=== PATIENT | female | born 1945 | race Caucasian/White ===

== ENCOUNTER → 2020-10-19 00:33 | Outpatient (CLI) | payer MEDICARE, SELFPAY ==
[2020-10-19 18:42] LABS: SARS-CoV-2 RNA PCR Negative
== END ==
PROVIDERS: Visit Provider Internal Medicine Gastroenterology
DX: Z01.812 Encounter for preprocedural laboratory examination (principal); Z20.822 Contact with and (suspected) exposure to COVID-19
CPT/HCPCS: C9803; U0003; U0005

== ENCOUNTER 2020-10-22 00:46 | Day surgery (SDC) | payer MEDICARE, SELFPAY ==
[2020-10-12 11:12] VITALS: BMI 20.8
[2020-10-22] MEDS: LACTATED RINGERS 1,000 ML 150 ML IV CONT (07:52)
[2020-10-22 07:55] VITALS: BP 148/89; PULSE 91; RESP 20; TEMP 36.1; O2SAT 99; BMI 22.1
--- NOTE | 2020-10-22 07:57 | WPDANESEPPF ---
Anes - Initial Pre Proc Eval Procedure: Operation Date: 10/22/20 09:00 Proposed Procedures p Screening Colonoscopy - Scar Taylor MD Date/Time: 10/22/20 07:57 Surgeon: Scar Taylor MD Pre Op Diagnosis: hx of colon polyps Patient Data Age: 75 Gender: F Height: 5 ft 4 in Weight: 55 kg Allergies Allergy/AdvReac Type Severity Reaction Status Date / Time No Known Allergies Allergy Unverified 10/12/20 11:12 Home Medications Medication Instructions Recorded Confirmed Type sod picosulf 10 mg-magnes 3.5 160 ml PO BID #160 ml 09/28/20 Rx gram-citric 12 gram/160 mL oral solution ascorbic acid (vitamin C) 500 mg PO DAILY 10/12/20 10/12/20 History biotin 1,000 mcg PO DAILY 10/12/20 10/12/20 History calcium carbonate-vitamin D3 2 cap PO DAILY 10/12/20 10/12/20 History [Calcium 600 + D(3)] famotidine 20 mg PO BID 10/12/20 10/12/20 History kykemkgnhwqk-xpi-endg-FA-vit K 1 tablet PO DAILY 10/12/20 10/12/20 History [Adults Multivitamin] ropinirole 0.25 mg PO HS 10/12/20 10/12/20 History vit C-E-zinc zh-untk-pez-zeax 1 cap PO DAILY 10/12/20 10/12/20 History [ICaps AREDS2] Patient hx anesthesia problems: none Family hx anesthesia problems: none [facility] Past Medical History Medical History (Updated 10/22/20 @ 07:57 by Bhargav Hines MD) Chronic ITP (idiopathic thrombocytopenic purpura) GERD (gastroesophageal reflux disease) Restless leg syndrome Social History Social History Smoking status: Never smoker Drinks per week: 2 Alcohol use details: WINE Substance use: never Substance use type: does not use Living arrangements: alone Spiritual care concerns: No Anes - Eval Final PreProcedure Day of Procedure 10/22/20 07:57 Patient weight: normal Heart: regular rate and rhythm Lungs: clear to auscultation Airway: Mallampati scale class II Neurological: alert and oriented Last oral intake: >/= 8 hours ASA classification: III Emergent: no Anesthetic plan: proceed Anesthesia type and monitoring: general GIVS and standard monitoring Informed Consent: The patient's anesthetic plan and its attendant risks and benefits were discussed with the patient/family/POA. Questions were solicited and answers provided to the satisfaction of the patient/family/POA.
--- NOTE | 2020-10-22 08:04 | WPDGICN ---
Assessment and Plan Assessment and plan (1) History of colon polyps: Code(s): Z86.010 - Personal history of colonic polyps Status: Acute Assessment and Plan: Patient has a history of adenomatous colon polyps in the past. Most recently 2014. Plan to proceed with colonoscopy at this time and suggest colonoscopy at 5 year intervals. GI Consult Note Consult date/time: 10/22/20 08:04 HPI: Estelita Avery is a 75 year old female Presents for screening colonoscopy. She has a history of colon polyps in the past. Most recently 2014. At that time adenomatous polyps were identified. Patient states that her current weight appetite bowel movements are normal. She denies any family history of cancer nor polyps. She states her bowel habits are normal with no bleeding. Review of Systems Review of Systems: All systems reviewed & are unremarkable except as noted in HPI and below PMFSH Past Medical History Medical History (Updated 10/22/20 @ 08:05 by Scar Taylor MD) Chronic ITP (idiopathic thrombocytopenic purpura) GERD (gastroesophageal reflux disease) Restless leg syndrome Social History Social History Smoking status: Never smoker Drinks per week: 2 Alcohol use details: WINE Substance use: never Substance use type: does not use Living arrangements: alone Spiritual care concerns: No Meds Home Medications and Allergies Home Medications Medication Instructions Recorded Confirmed Type sod picosulf 10 mg-magnes 3.5 160 ml PO BID #160 ml 09/28/20 Rx gram-citric 12 gram/160 mL oral solution ascorbic acid (vitamin C) 500 mg PO DAILY 10/12/20 10/12/20 History biotin 1,000 mcg PO DAILY 10/12/20 10/12/20 History calcium carbonate-vitamin D3 2 cap PO DAILY 10/12/20 10/12/20 History [Calcium 600 + D(3)] famotidine 20 mg PO BID 10/12/20 10/12/20 History ubctaxlasxxk-gva-dodx-FA-vit K 1 tablet PO DAILY 10/12/20 10/12/20 History [Adults Multivitamin] ropinirole 0.25 mg PO HS 10/12/20 10/12/20 History vit C-E-zinc wz-pxiu-cjt-zeax 1 cap PO DAILY 10/12/20 10/12/20 History [ICaps AREDS2] Allergies Allergy/AdvReac Type Severity Reaction Status Date / Time No Known Allergies Allergy Unverified 10/12/20 11:12 Vital Signs Vital Signs - 24 hr 10/22/20 07:55 Temperature 97 F L Pulse Rate 91 Respiratory Rate 20 Blood Pressure 148/89 H Pulse Oximetry 99 Exam Narrative: Exam Narrative: Physical exam reveals patient be alert. Vital signs stable. HEENT exam unremarkable. Lungs are clear to auscultation and percussion. Heart is without murmur or extra sounds. Abdominal exam bowel sounds are present soft nontender with no organomegaly. Digital external rectal exam normal.
[2020-10-22 08:57] VITALS: BP 118/78; PULSE 74; RESP 24; O2SAT 99
[2020-10-22 09:07] VITALS: BP 125/77; PULSE 74; RESP 17; O2SAT 99
[2020-10-22 09:10] VITALS: BP 127/90; PULSE 72; RESP 18; O2SAT 99
== END 2020-10-22 09:30 | disposition home or self-care (01) ==
PROVIDERS: Visit Provider Internal Medicine Gastroenterology
PROC: 0DJD8ZZ Inspection of Lower Intestinal Tract, Via Natural or Artificial Opening Endoscopic (ICD-10-PCS; CPT 45378; principal; 2020-10-22 09:00)
DX: Z12.11 Encounter for screening for malignant neoplasm of colon (principal); Z86.010 Personal history of colon polyps; K21.9 Gastro-esophageal reflux disease without esophagitis; G25.81 Restless legs syndrome; K64.8 Other hemorrhoids; K57.30 Diverticulosis of large intestine without perforation or abscess without bleeding
CPT/HCPCS: G0105; J2704; J7120

== ENCOUNTER 2022-02-27 09:50 | Observation (INO) | payer MEDICARE, SELFPAY ==
[2022-02-27] VITALS (65 sets, daily range): BP systolic 127–166; BP diastolic 70–97; PULSE 54–90; RESP 14–21; TEMP 36.6–36.7; O2SAT 79–100; BMI 25.8
--- NOTE | ~2022-02-27 | XR_ITS ---
EXAMINATION: XR chest 2V DATE: 02/27/2022 10:33 INDICATION: Sudden onset of chest pain and shortness of breath TECHNIQUE: PA and lateral views of the chest are obtained. COMPARISON: 06/15/2004 FINDINGS: The lungs are free of acute opacities. No pleural effusion or pneumothorax. The cardiomedia stinal silhouette is normal. There is moderate thoracic spondylosis. IMPRESSION: 1. No acute cardiopulmonary abnormality. Reviewed, dictated and finalized at location B.
--- NOTE | 2022-02-27 09:53 | ECG_ITS ---
Measurements Intervals [place] Rate: 82 P: 62 HI: 104 QRS: 41 QRSD: 89 T: 54 QT: 353 QTc: 415 Interpretive Statements SINUS RHYTHM WITH SHORT HI INTERVAL POSSIBLE LEFT ATRIAL ENLARGEMENT BORDERLINE ECG NO PREVIOUS ECG AVAILABLE FOR COMPARISON Electronically Signed On 02-27-2022 10:18:04 CDT by John Momin D.O.
--- NOTE | 2022-02-27 10:15 | ED.CHESTPAIN ---
HPI - Chest Pain General Chief Complaint: Chest Pain Stated Complaint: INTERMITTENT CHEST PAIN Time Seen by Provider: 02/27/22 10:03 Source: patient and RN notes reviewed Mode of arrival: ambulatory Limitations: no limitations History of Present Illness HPI narrative: 76 years old white female presents to the ED with chest pain, shortness of breath and dizziness started after walking three quarters of a mile prior to arrival to the emergency room. The symptoms started improving after the patient slowed down her walk and rested. Initially was 5 out of 10, currently 1 out of. History of GERD on antacid. Strong family history of coronary artery disease. Patient reports intermittent indigestion for the last 4 weeks. Patient is not on antiplatelet or anticoagulant medication at this time. Related Data Home Medications Medication Instructions Recorded Confirmed ascorbic acid (vitamin C) 500 mg 500 mg PO DAILY 10/12/20 10/12/20 tablet biotin 1,000 mcg chewable tablet 1,000 mcg PO DAILY 10/12/20 10/12/20 calcium carbonate 600 mg-vitamin 2 cap PO DAILY 10/12/20 10/12/20 D3 5 mcg (200 unit) capsule (Calcium 600 + D(3)) famotidine 20 mg tablet 20 mg PO BID 10/12/20 10/12/20 multivit with minerals-iron 18 1 tablet PO DAILY 10/12/20 10/12/20 mg-folic ac 400 mcg-vit K 25 mcg tablet (Adults Multivitamin) ropinirole 0.25 mg tablet 0.25 mg PO HS 10/12/20 10/12/20 vit C 250 mg-vit E 200 unit-zinc 1 cap PO DAILY 10/12/20 10/12/20 ox 12.5 bq-lhkxnk-amjftp-zeax capsule (ICaps AREDS2) Allergies Allergy/AdvReac Type Severity Reaction Status Date / Time No Known Allergies Allergy Verified 02/27/22 09:50 Review of Systems Review of Systems: All systems reviewed & are unremarkable except as noted in HPI and below PMFSH Past Medical History Medical History Chronic ITP (idiopathic thrombocytopenic purpura) GERD (gastroesophageal reflux disease) Restless leg syndrome Social History Social History Smoking status: Never smoker Drinks per week: 2 Alcohol use details: WINE Substance use: never Substance use type: does not use Spiritual care concerns: No Exam Narrative: General appearance: Well-developed, well-nourished Skin: Normal color Head: Normocephalic, nontraumatic Eyes: Clear conjunctiva ENT: Oropharynx normal, ears normal, nose normal Neck: Supple, nontender Chest and respiratory: Airway patent, no respiratory distress, no accessory muscle use Heart: Regular rate/rhythm Abdomen: Soft, nontender, no organomegaly, quiet bowel sounds Vascular: Normal peripheral pulses, normal capillary refill. Musculoskeletal: Normal range of motion, nontender back Neurologic: Alert and oriented ?3, DEAN OF ADMISSIONS is normal as tested, no gross motor deficit Course Consultations Consultation #1: Dr. Vick Date: 02/27/22 Time: 11:03 Vital Signs Vital signs: Vital Signs Temperature 36.7 C 02/27/22 09:56 Pulse Rate 86 02/27/22 09:56 Respiratory Rate 17 02/27/22 09:56 Blood Pressure 166/89 H 02/27/22 09:56 Pulse Oximetry 100 02/27/22 09:56 Temperature 36.7 C 02/27/22 09:56 Pulse Rate 75 02/27/22 10:51 Respiratory Rate 17 02/27/22 09:56 Blood Pressure 166/89 H 02/27/22 09:56 Pulse Oximetry 100 02/27/22 09:56 MDM - Chest Pain Lab Data Result diagrams: 02/27/22 10:15 02/27/22 10:15 Labs: Lab Results 02/27/22 02/27/22 02/27/22 Range/Units 10:15 10:15 10:15 WBC 5.3 (4.5-10.0) K/mm3 RBC 4.33 (4.2-5.4) M/mm3 Hgb 13.2 (12.0-15.0) g/dL Hct 40.
[2022-02-27 10:24] LABS: Basophils Percent Auto 0.6 % (0.2-1.2); Eosinophils Absolute Auto 0.1 K/mm3 (0-0.3); Eosinophils Percent Auto 1.1 % (0-4.4); Hematocrit 40.3 % (37.0-47.0); Hemoglobin 13.2 g/dL (12.0-15.0); Lymphocytes Absolute Auto 1.94 K/mm3 (0.9-3.2); Lymphocytes Percent Auto 36.8 % (18.3-44.2); Mean Corpuscular HGB Conc 32.8 g/dl (32-36); Mean Corpuscular Hemoglobin 30.5 pg (26-34); Mean Corpuscular Volume 93.1 fl (80-100); Mean Platelet Volume 9.4 fl (7.4-10.4); Monocytes Absolute Auto 0.6 K/mm3 (0.1-0.6); Monocytes Percent Auto 10.8 % (2.6-8.5); Neutrophils Absolute Auto 2.7 K/mm3 (1.3-6.7); Neutrophils Percent Auto 50.7 % (45.5-73.1); Platelet Count Result 251 k/mm3 (150-375); Red Blood Count 4.33 M/mm3 (4.2-5.4); Red Cell Distribution Width 13.5 % (11.5-14.5); White Blood Count 5.3 K/mm3 (4.5-10.0)
[2022-02-27 10:35] LABS: Alanine Aminotransferase 44 U/L (6-35); Albumin Level 4.4 g/dL (3.5-5.1); Alkaline Phosphatase 94 U/L (38-126); Anion Gap 9 mmol/L (8-16); Aspartate Amino Transferase 69 U/L (14-36); Bilirubin,Total 0.5 mg/dL (0.2-1.3); Blood Urea Nitrogen 22 mg/dL (7-17); Calcium 9.3 mg/dL (8.4-10.2); Carbon Dioxide 25 mmol/L (22-30); Chloride 101 mmol/L (98-107); Estimated CRCL calculation 40 ml/min; Estimated Glomerular Filt Rate > 60; Glucose 105 mg/dL (65-110); Lipase 101 U/L (23-300); Potassium 4.2 mmol/L (3.4-5.0); Sodium 135 mmol/L (137-145)
[2022-02-27 10:36] LABS: Prothrombin Time 12.8 Seconds (11.1-14.7)
[2022-02-27 10:37] LABS: Partial Thromboplastin Time 26.7 SECONDS (22.3-36.8)
[2022-02-27 10:47] LABS: Troponin I < 0.012 ng/mL (0.000-0.034)
[2022-02-27] MEDS: ASPIRIN 81 MG CHEWABLE TABLET 324 MG PO (10:50)
[2022-02-27] MEDS: METOPROLOL TARTRATE 25 MG TABLET PO (10:51)
--- NOTE | 2022-02-27 12:34 | PM.IMHP ---
H&P: HPI History of Present Illness Date/Time: 02/27/22 12:34 Chief Complaint: Chest pain Narrative: This is a 76-year-old female patient who came to the emergency room with epigastric discomfort and shortness of breath was dizziness. The patient stated that she does have a long history of GERD. However this was different today. The patient was walking and became short of breath and had chest pain. She has had no prior history of any coronary artery disease. Initially her pain was 5/10 but is now 1/10. She has no reproducible pain at this time. The patient was given nitroglycerin aspirin and Lopressor. She has had 2- troponins so far. Chest x-ray was read as no acute cardiopulmonary abnormalities. The patient initially was going to be admitted to inpatient was changed to observation status on the date of service of 02/27/2022. Review of Systems Review of Systems: See HPI All systems reviewed & are unremarkable except as noted in HPI and below Constitutional: Constitutional: Reports as per HPI and Reports no additional constitutional complaints Eyes: Eyes: Reports as per HPI and Reports no additional eye complaints ENT: Reports system reviewed and no additional complaints, except as documented and Reports Normal hearing present Cardiovascular: Cardiovascular: Reports no additional cardiovascular complaints Respiratory: Respiratory: Reports no additional respiratory complaints and Reports no additional respiratory complaints Gastrointestinal: Gastrointestinal: Reports as per HPI and Reports no additional gastrointestinal complaints Musculoskeletal: Musculoskeletal: Reports no additional musculoskeletal complaints Integumentary/Breasts: Skin/Breast: Reports system reviewed and no additional complaints, except as docu and Reports as per HPI Neurologic: Reports system reviewed and no additional complaints, except as documented, Reports as per HPI and Reports Normal hearing present Psychiatric: Psychiatric: Reports no additional psychiatric complaints and Reports as per HPI Endocrine: Endocrine: Reports no additional endocrine complaints Hematologic/Lymphatic: Hematologic/Lymphatic: Reports no additional hematologic/lymphatic complaints Allergic/Immunologic: Allergic/Immunologic: Reports no additional allergic/immunologic complaints [facility] Past Medical History Medical History (Updated 02/27/22 @ 15:36 by Leila Braxton NP) Chronic GERD Chronic ITP (idiopathic thrombocytopenic purpura) GERD (gastroesophageal reflux disease) History of colon polyps Restless leg syndrome Surgical History Surgical History (Updated 02/27/22 @ 12:37 by Leila Braxton NP) H/O cataract extraction H/O: hysterectomy History of tonsillectomy and adenoidectomy Hx of cholecystectomy S/P colonoscopic polypectomy Family History Family History (Updated 02/27/22 @ 12:40 by Leila Braxton NP) Mother Breast cancer Father Heart disease Sibling Diabetes mellitus Social History Social History (Updated 02/27/22 @ 15:28 by Leila Braxton NP) Social History: The patient is single and has 1 son who is the durable power erisa attorney for healthcare. The patient is retired from [employer]. She is a lifelong nonsmoker. She does not use any marijuana or illicit drugs. Socially drinks Code status full code Smoking status: Never smoker Drinks per week: 2 Alcohol use details: WINE Substance use: never Substance use type: does not use Spiritual care concerns: No Meds Home Medications and Allergies Home Medications Medication Instructions Recorded Confirmed Type sod picosulf 10 mg-magnes 3.5 160 ml PO BID 2 doses #160 mL 09/28/20 Rx gram-citric 12 gram/160 mL oral solution (Clenpiq) ascorbic acid (vitamin C) 500 mg 500 mg PO DAILY 10/12/20 10/12/20 History tablet biotin 1,000 mcg chewable tablet 1,000 mcg PO DAILY 10/12/20 10/12/20 History calcium carbonate 600 mg-vit
--- NOTE | 2022-02-27 13:01 | PC.NURSE ---
RECEIVED CALL FROM CARDIOLOGY NO STRESS TEST TODAY PT HAD DECAF Beverage this morning stress test tomorrow AM at 0830
[2022-02-27 13:18] LABS: Troponin I < 0.012 ng/mL (0.000-0.034)
--- NOTE | 2022-02-27 17:25 | ADMGEN ---
This patient, Estelita Avery, was admitted to IMU Room 212-01 at 1720. Patient/family oriented to hospital policies and general routines including ID bracelet, bed and alarms, visiting hours, pain management, procedures, bathroom and other care routines, personal items, smoking policy, room service/diet, and visiting hours. Information on how to activate the Rapid Response Team has been discussed. Patient/Family are encouraged to report perceived risks to care and to ask questions if they do not understand what they are told or what they should do.
[2022-02-27 18:03] LABS: Troponin I < 0.012 ng/mL (0.000-0.034)
[2022-02-27] MEDS: PANTOPRAZOLE SODIUM IV 40 MG VIAL IV PUSH (21:04)
[2022-02-28] VITALS: PULSE 59
--- NOTE | 2022-02-28 | ECHO_ITS ---
Patient Info Name: Estelita Avery Age: 76 years : 1945 Gender: Female Ht: 64 in Wt: 130 lbs BSA: 1.64 m2 HR: 62 bpm BP: 149 / 73 mmHg Heart Rhythm: Sinus Rhythm Technical Quality: Fair Exam Date: 02/28/2022 9:35 AM Exam Location: [facility] Pulmonary Patient Status: Inpatient Admit Date: 02/27/2022 Staff Ordering Physician: Leila Braxton NP Erco Machine Operator: Shadia Lemus RDCS Attending Provider: Sharmin Elaine DO Referring Physician: Fox GRIDER; Exam Type: CA echo doppler color flow Study Info Indications R07.89 - Other chest pain Complete two-dimensional, color flow and Doppler transthoracic echocardiogram is performed. Summary 1. Complete two-dimensional, color flow and Doppler transthoracic echocardiogram is performed. 2. Essentially normal 2D /Doppler echocardiogram. 3. Trivial amount of tricuspid regurgitation is within physiological normal limits. Left Ventricle Left ventricular chamber dimension is normal. Left ventricular systolic function is normal, estimated at 65-70%. The left ventricular diastolic function is normal. Right Ventricle Right ventricular chamber dimension is normal. Left Atria Left atrial chamber dimension is normal. Right Atria Right atrial chamber dimension is normal. Aortic Valve The aortic valve is normal. Pulmonic Valve The pulmonic valve is normal. Mitral Valve The mitral valve has normal leaflets. Tricuspid Valve The tricuspid valve leaflets are normal. There is trace tricuspid valve regurgitation. Pericardium/Pleural The pericardium appears normal. Aorta The aortic root size at the sinus of Valsalva is normal. Left Ventricular Outflow Tract Name Value Normal LVOT 2D LVOT Diameter 2.0 cm LVOT Doppler LVOT Peak Gradient 7 mmHg LVOT Mean Gradient 4 mmHg LVOT VTI 28 cm LVOT VTI/AV VTI Ratio 0.9 LVOT Stroke Volume 84 ml LVOT CO 5.1 l/min LVOT CI 3.1 l/min/m2 Pulmonic Valve Name Value Normal RVOT Doppler RVOT Peak Gradient 3 mmHg PV Doppler PV Peak Gradient 3 mmHg Mitral Valve Name Value Normal MV Doppler MV Decel Amelia 299 cm/s2 MV PHT 72 ms MV Area (PHT) 3.1 cm2 4.0-5.0 MV Diastol
--- NOTE | 2022-02-28 | EST_ITS ---
Patient Info Name: Estelita Avery Age: 76 years : 1945 Gender: Female Ht: 64 in Wt: 130 lbs BSA: 1.64 m2 HR: 65 bpm BP: 164 / 84 mmHg Heart Rhythm: Sinus Rhythm Exam Date: 02/28/2022 8:35 AM Exam Location: [facility] Stress Patient Status: Inpatient Admit Date: 02/27/2022 Staff Ordering Physician: Leila Braxton NP Attending Provider: Washington Vick MD Exercise Technologist: Sheila Givens CT Exam Type: CA stress test treadmill Study Info Indications R07.9 - Chest pain, unspecified A treadmill exercise stress test was performed. Summary 1. Normal sinus rhythm - normal ECG. 2. No abnormal ST/T wave changes with exercise. 3. None. 4. Great graded exercise test to 96% age predicted maximum heart rate which is clinically and electrocardiographically negative. Protocol: [facility] Stress ECG Details Stage: REST Duration (min): 2 min : 18 sec Speed (mph): 0.0 Grade (%): 0 HR (bpm): 67 SBP (mmHg): 164 DBP (mmHg): 88 METS: --- Stage: REST Duration (min): 9 min : 25 sec Speed (mph): 0.0 Grade (%): 0 HR (bpm): 71 SBP (mmHg): 164 DBP (mmHg): 88 METS: --- Stage: STAGE 1 Duration (min): 1 min : 0 sec Speed (mph): 1.7 Grade (%): 10 HR (bpm): 89 SBP (mmHg): 164 DBP (mmHg): 88 METS: --- Stage: STAGE 1 Duration (min): 2 min : 0 sec Speed (mph): 1.7 Grade (%): 10 HR (bpm): 104 SBP (mmHg): 164 DBP (mmHg): 88 METS: --- Stage: STAGE 1 Duration (min): 3 min : 0 sec Speed (mph): 1.7 Grade (%): 10 HR (bpm): 102 SBP (mmHg): 185 DBP (mmHg): 85 METS: --- Stage: STAGE 2 Duration (min): 1 min : 0 sec Speed (mph): 2.5 Grade (%): 12 HR (bpm): 109 SBP (mmHg): 185 DBP (mmHg): 85 METS: --- Stage: STAGE 2 Duration (min): 2 min : 0 sec Speed (mph): 2.5 Grade (%): 12 HR (bpm): 120 SBP (mmHg): 182 DBP (mmHg): 84 METS: --- Stage: STAGE 2 Duration (min): 3 min : 0 sec Speed (mph): 2.5 Grade (%): 12 HR (bpm): 121 SBP (mmHg): 182 DBP (mmHg): 84 METS: --- Stage: STAGE 3 Duration (min): 1 min : 0 sec Speed (mph): 3.4 Grade (%): 14 HR (bpm): 133 SBP (mmHg): 206 DBP (mmHg): 86 METS: --- Stage: STAGE 3 Duration (min): 2 min : 0 sec Speed (mph): 3.4 Grade (%): 14 HR (bpm): 134 SBP (mmHg): 194 DBP (mmHg): 86 METS: --- Stage: STAGE 3 Duration (min): 2 min : 59 sec Speed (mph): 4.2 Grade (%): 16 HR (bpm): 137 SBP (mmHg): 195 DBP (mmHg): 87 METS: --- Stage: RECOVERY Duration (min): 1 min : 0 sec Speed (mph): 0.0 Grade (%): 0 HR (bpm): 121 SBP (mmHg): 195 DBP (mmHg): 87 METS: --- Stage: RECOVERY Duration (min): 2 min : 0 sec Speed (mph): 0.0 Grade (%): 0 HR (bpm): 102 SBP (mmHg): 195
[2022-02-28 02:00] VITALS: PULSE 64
[2022-02-28 04:00] VITALS: BP 149/73; PULSE 57; PULSE 61; RESP 18; TEMP 36.7; O2SAT 99
[2022-02-28 05:30] LABS: Basophils Percent Auto 0.8 % (0.2-1.2); Eosinophils Absolute Auto 0.1 K/mm3 (0-0.3); Eosinophils Percent Auto 1.6 % (0-4.4); Hematocrit 42.9 % (37.0-47.0); Hemoglobin 13.6 g/dL (12.0-15.0); Immature Granulocyte Absolute 0.01 K/mm3 (0.00-0.031); Immature Granulocyte Percent A 0.2 % (0-0.5); Lymphocytes Absolute Auto 1.85 K/mm3 (0.9-3.2); Lymphocytes Percent Auto 37.1 % (18.3-44.2); Mean Corpuscular HGB Conc 31.7 g/dl (32-36); Mean Corpuscular Hemoglobin 30.4 pg (26-34); Mean Corpuscular Volume 95.8 fl (80-100); Monocytes Absolute Auto 0.5 K/mm3 (0.1-0.6); Monocytes Percent Auto 10.6 % (2.6-8.5); Neutrophils Absolute Auto 2.5 K/mm3 (1.3-6.7); Neutrophils Percent Auto 49.7 % (45.5-73.1); Platelet Count Result 233 k/mm3 (150-375); Red Blood Count 4.48 M/mm3 (4.2-5.4); Red Cell Distribution Width 13.4 % (11.5-14.5)
[2022-02-28 05:39] LABS: Lactic Acid Reflex 0.7 mmol/L (0.7-2.0)
[2022-02-28 05:56] LABS: Alanine Aminotransferase 43 U/L (6-35); Albumin Level 4.6 g/dL (3.5-5.1); Alkaline Phosphatase 83 U/L (38-126); Anion Gap 9 mmol/L (8-16); Aspartate Amino Transferase 50 U/L (14-36); Bilirubin,Total 0.8 mg/dL (0.2-1.3); Blood Urea Nitrogen 20 mg/dL (7-17); CRP < 0.5 mg/dL (<1.0); Calcium 9.4 mg/dL (8.4-10.2); Carbon Dioxide 24 mmol/L (22-30); Chloride 105 mmol/L (98-107); Estimated CRCL calculation 44 ml/min; Estimated Glomerular Filt Rate > 60; Glucose 95 mg/dL (65-110); Lactate Dehydrogenase 201 U/L (120-246); Lipase 79 U/L (23-300); Magnesium 2.3 mg/dL (1.6-2.3); Phosphorus 3.5 mg/dL (2.5-4.5); Sodium 138 mmol/L (137-145)
[2022-02-28 06:00] VITALS: PULSE 62
[2022-02-28 06:07] LABS: D Dimer 0.31 ug/mL (<0.48)
[2022-02-28 08:00] VITALS: BP 160/97; PULSE 60; PULSE 63; RESP 16; TEMP 36.1; O2SAT 100
[2022-02-28] MEDS: PANTOPRAZOLE SODIUM IV 40 MG VIAL IV PUSH (10:17)
[2022-02-28 12:00] VITALS: BP 124/88; PULSE 59; PULSE 64; RESP 16; TEMP 36.5; O2SAT 100
--- NOTE | 2022-02-28 12:46 | PM.CNCAR ---
Assessment and Plan Assessment and plan (1) Chest pain: Code(s): R07.9 - Chest pain, unspecified Status: Acute Plan This is a 76-year-old lady admitted after an episode of exertional chest discomfort yesterday which is atypical for her. She normally can exert any level she needs to without symptoms like this. Acute coronary syndrome was ruled out and she had a negative exercise stress test this morning as well as an echocardiogram that does not show any ischemic wall motion abnormalities. In my opinion at this time she can be discharged from the cardiac perspective. She does have primary care physician in [place] at [facility]. Advised the patient to notify her physician up there if exertional symptoms continue to occur like this. At this point she does not have to remain hospitalized here at [facility] in my opinion Cornelio Ramos MD [facility] History of Present Illness History of Present Illness Consult date/time: 02/28/22 12:46 Consult reason: chest pain Reason For Visit: chest pain Narrative: This is a 76-year-old lady am seeing today at the request of the hospitalist because of chest pain with which she was seen in the emergency room yesterday and admitted to the hospital overnight. The patient is not known to have any cardiac problems before this and noticed chest pain yesterday which he was walking on a trail for exercise. She is used to doing this regularly for 2 or 3 miles at a time. She typically has no difficulty with this type of exercise but yesterday she noticed that the discomfort occurred where she had a epigastric to low substernal pain she describes it as a burning sensation that was egcj-uw-rolbxezo but it created concern on her PF. She slow down the pace of her walk the symptoms improved she walked the rest of the way home slowly and after this episode she began to think about it and so she became concerned and later in the day came to the emergency department for evaluation. Altogether she thinks the symptom was there for about 2 minutes yesterday when this occurred. She denies any other symptoms such as exertional dyspnea orthopnea PND edema palpitations or syncope. In the emergency room her electrocardiogram was unremarkable and has remained normal. Her troponin levels were normal and have remained normal. She had a exercise electrocardiogram done this morning at the request of the hospitalist which was negative at 96% of her age predicted maximum heart rate. She had an echocardiogram that was also normal without any ischemic wall motion abnormalities being identified. Review of Systems Constitutional: Constitutional: Reports no additional constitutional complaints Eyes: Eyes: Reports no additional eye complaints ENT: Reports system reviewed and no additional complaints, except as documented Cardiovascular: Cardiovascular: Reports as per HPI Respiratory: Respiratory: Reports no additional respiratory complaints Gastrointestinal: Gastrointestinal: Reports heartburn Musculoskeletal: Musculoskeletal: Reports no additional musculoskeletal complaints Integumentary/Breasts: Skin/Breast: Reports system reviewed and no additional complaints, except as docu Endocrine: Endocrine: Reports no additional endocrine complaints Hematologic/Lymphatic: Hematologic/Lymphatic: Reports no additional hematologic/lymphatic complaints Allergic/Immunologic: Allergic/Immunologic: Reports no additional allergic/immunologic complaints [facility] Past Medical History Medical History (Updated 02/27/22 @ 15:36 by Leila Braxton NP) Chronic GERD Chronic ITP (idiopathic thrombocytopenic purpura) GERD (gastroesophageal reflux disease) History of colon polyps Restless leg syndrome Surgical History Surgical History (Updated 02/27/22 @ 12:37 by Leila Braxton NP) H/O cataract extraction H/O: hysterectomy History of tonsillectomy and adenoidectomy Hx of cholecystectomy S/P colonoscopic polypect
[2022-02-28 14:03] LABS: Free T4 Free Thyroxine Reflex 1.44 ng/dL (0.78-2.19)
--- NOTE | 2022-02-28 14:12 | PM.DS ---
DS: Admitting Diagnosis Discharge Date 02/28/2022 Admitting Diagnosis Chest pain DS: Discharge Diagnosis Discharge Diagnosis (1) Chest pain: Code(s): R07.9 - Chest pain, unspecified Status: Acute Assessment and Plan: -troponin negative times 2 - continue to trend cardiac enzymes -stress test -echo -cardiology has been consulted. It sounds like her pain gets worse when she exerts herself. -chest x-ray was negative. -check D-dimer for possibility of DVT/PE (2) Chronic GERD: Code(s): K21.9 - Gastro-esophageal reflux disease without esophagitis Status: Acute Assessment and Plan: -the patient has a long history of having GERD and has seen Dr. Taylor in the past. -continue with IV pantoprazole. -may refer the patient back to GI if all of her cardiac workup is negative. -I explained that she needs to avoid raw vegetables, fried greasy food, fatty food, and spicy food. -she needs to avoid eating 2-3 hours prior to going to bed. She also needs to prop her head of the bed up as well. -the patient stated that she belches a lot. May consider p.r.n. Pepcid or Tums. DS: Summary Hospital Course Reason for hospitalization: This is a 76-year-old female patient who came to the emergency room with epigastric discomfort and shortness of breath was dizziness.? The patient stated that she does have a long history of GERD.? However this was different today.? The patient was walking and became short of breath and had chest pain.? She has had no prior history of any coronary artery disease.? Initially her pain was 5/10 but is now 1/10.? She has no reproducible pain at this time.? The patient was given nitroglycerin aspirin and Lopressor.? She has had 2- troponins so far.? Chest x-ray was read as no acute cardiopulmonary abnormalities.? The patient initially was going to be admitted to inpatient was changed to observation status. Hospital Course: 76-year-old female presented with exertional chest to further evaluate patient is 3 sets of cardiac enzymes which were negative, to further evaluate patient had a cardiac stress test and cardiac echo both were essentially normal, seen by Cardiology does not suspect patient has acute coronary syndrome, patient is clinically stable will discharge the patient today. Time Spent with Patient Time attestation: Total time spent providing and/or coordinating discharge services: Exam Narrative: Patient is comfortable, NAD HEENT: eyes are clear and none icteric LUNGS:CTA HEART: RR S1S2 ABD: BS+, Soft and nontender Lower extremities: no edema SKIN: nonjaundiced Neuro: grossly intact. DS: Data Data Completed and Pending Labs on day of discharge: Labs from last 24 hours 02/28/22 02/28/22 02/28/22 05:03 05:03 05:03 WBC RBC Hgb Hct MCV MCH MCHC RDW Plt Count MPV Immature Gran % (Auto) Neut % (Auto) Lymph % (Auto) [place] % (Auto) Eos % (Auto) Baso % (Auto) Lymph # (Auto) [place] # (Auto) Eos # (Auto) Baso # (Auto) Abs Immat Gran (auto) Absolute Neuts (auto) Absolute Nucleated RBC Nucleated RBC % D-Dimer Sodium Potassium Chloride Carbon Dioxide Anion Gap BUN Creatinine Estim Creat Clear Calc Estimated GFR Glucose Lactic Acid Calcium Phosphorus Magnesium Ferritin 38.50 Total Bilirubin AST ALT Alkaline Phosphatase Lactate Dehydrogenase Troponin I C-Reactive Protein Total Protein Albumin Lipase TSH (Reflex) 4.610 Free T4 1.44 Total T3 Pending 02/28/22 02/28/22 02/28/22 05:03 05:03 05:03 WBC RBC Hgb Hct MCV MCH MCHC RDW Plt Count MPV Immature Gran % (Auto) Neut % (Auto) Lymph % (Auto) [place] % (Auto) Eos % (Auto) Baso % (Auto) Lymph # (Auto) [place] # (Auto) Eos # (Auto) Baso # (Auto) Abs Immat Gran (auto)
[2022-02-28 15:10] LABS: Total Triiodothyronine (T3) 1.29 NG/ML (0.97-1.69)
== END 2022-02-28 14:37 | disposition home or self-care (01) ==
LOC: ANHED 11:04 → ANHIMU 17:04
PROVIDERS: Nurse Practitioner; Admitting Provider Internal Medicine; Emergency Provider Emergency Medicine; PCP Internal Medicine Rheumatology; Visit Provider Family Medicine
DX: R07.9 Chest pain, unspecified (principal); K21.9 Gastro-esophageal reflux disease without esophagitis; R10.13 Epigastric pain; D69.3 Immune thrombocytopenic purpura; G25.81 Restless legs syndrome; R94.31 Abnormal electrocardiogram [ECG] [EKG]; Z72.89 Other problems related to lifestyle; Z79.899 Other long term (current) drug therapy; Z82.49 Family history of ischemic heart disease and other diseases of the circulatory system
CPT/HCPCS: 36415; 71046; 80053; 82728; 83605; 83615; 83690; 83735; 84100; 84439; 84443; 84480; 84484; 85025; 85380; 85610; 85730; 86140; 93005; 93017; 93306; 96374; 96376; 99285; A9270; C9113; G0378

== ENCOUNTER 2022-11-04 01:10 | Day surgery (SDC) | payer MEDICARE, SELFPAY ==
[2022-10-23 12:57] VITALS: BMI 20.8
--- NOTE | 2022-10-24 15:42 | PC.NURSE ---
DR. MELLO OFFICE CALLED, SPOKE WITH WILFREDO, PT IS UNDER THE IMPRESSION SHE WAS SUPPOSE TO HOLD PANTOPRAZOLE SEVERAL DAYS BEFORE EGD PER DR. VEGA BUT DID NOT KNOW HOW MANY. WILFREDO SENT A MESSAGE TO DR. VEGA AND HE DOES NOT WANT HER TO HOLD MED. I CALLED PT AND LEFT HER A MESSAGE TO NOT HOLD PANTOPRAZOLE AND TO CALL AND CONFIRM SHE HAD RECEIVED THE MESSAGE.
[2022-11-04 11:47] VITALS: BP 149/67; PULSE 67; RESP 16; TEMP 36.2; O2SAT 100; BMI 22.4
[2022-11-04] MEDS: LACTATED RINGERS 1,000 ML 150 ML IV CONT (12:16)
--- NOTE | 2022-11-04 12:39 | WPDANESEPPF ---
Anes - Initial Pre Proc Eval Procedure: Operation Date: 11/04/22 13:00 Proposed Procedures p Esophagogastroduodenoscopy - Scar Taylor MD Date/Time: 11/04/22 12:39 Surgeon: Scar Taylor MD Pre Op Diagnosis: belching Patient Data Age: 77 Gender: F Height: 1.63 m Weight: 59.4 kg Last Vital Signs Temp 97.1 F L 11/04/22 11:47 Pulse 67 11/04/22 11:47 Resp 16 11/04/22 11:47 BP 149/67 H 11/04/22 11:47 Pulse Ox 100 11/04/22 11:47 O2 Del Method Room Air 11/04/22 11:47 Allergies Allergy/AdvReac Type Severity Reaction Status Date / Time No Known Allergies Allergy Verified 10/23/22 12:57 Home Medications Medication Instructions Recorded Confirmed Type ascorbic acid (vitamin C) 500 mg 500 mg PO DAILY 10/12/20 10/23/22 History tablet biotin 1,000 mcg chewable tablet 1,000 mcg PO DAILY 10/12/20 10/23/22 History calcium carbonate 600 mg-vitamin 2 cap PO DAILY 10/12/20 10/23/22 History D3 5 mcg (200 unit) capsule (Calcium 600 + D(3)) multivit with minerals-iron 18 1 tablet PO DAILY 10/12/20 10/23/22 History mg-folic ac 400 mcg-vit K 25 mcg tablet (Adults Multivitamin) ropinirole 0.25 mg tablet 0.25 mg PO HS 10/12/20 10/23/22 History vit C 250 mg-vit E 200 unit-zinc 1 cap PO DAILY 10/12/20 10/23/22 History ox 12.5 oe-byofqb-ptbhja-zeax capsule (ICaps AREDS2) pantoprazole 40 mg tablet,delayed 40 mg PO BID #60 tabs 10/08/22 10/23/22 Rx release (Protonix) Vitamin D3 1 tab-cap PO DAILY 10/23/22 10/23/22 History magnesium 1 tab-cap PO DAILY 10/23/22 10/23/22 History Patient hx anesthesia problems: none Family hx anesthesia problems: none Results Review: All pre-operative results and documents have been reviewed as part of the pre-operative evaluation. [facility] Past Medical History Medical History Chronic GERD Chronic ITP (idiopathic thrombocytopenic purpura) GERD (gastroesophageal reflux disease) History of colon polyps Restless leg syndrome Surgical History Surgical History H/O cataract extraction H/O: hysterectomy History of tonsillectomy and adenoidectomy Hx of cholecystectomy S/P colonoscopic polypectomy Family History Family History Mother Breast cancer Father Heart disease Sibling Diabetes mellitus Social History Social History Social History: The patient is single and has 1 son who is the durable power meter shop supervisor for healthcare. The patient is retired from [employer]. She is a lifelong nonsmoker. She does not use any marijuana or illicit drugs. Socially drinks Code status full code Smoking status: Never smoker Alcohol intake: current Drinks per week: 2 Alcohol use details: socially Substance use: never Substance use type: does not use Living arrangements: alone Spiritual care concerns: No Anes - Eval Final PreProcedure Day of Procedure 11/04/22 12:39 Patient weight: normal Heart: regular rate and rhythm Lungs: clear to auscultation Airway: Mallampati scale class II Neurological: alert and oriented Last oral intake: >/= 8 hours ASA classification: II Emergent: no Anesthetic plan: proceed Anesthesia type and monitoring: general GIVS and standard monitoring Results Review: All pre-operative results and documents have been reviewed as part of the pre-operative evaluation. Informed Consent: The patient's anesthetic plan and its attendant risks and benefits were discussed with the patient/family/POA. Questions were solicited and answers provided to the satisfaction of the patient/family/POA.
--- NOTE | 2022-11-04 12:56 | WPDHPUPDATE1 ---
History and Physical Update Update Date/Time: 11/04/22 12:56 History and Physical has been reviewed, including an updated exam of the patient. There are NO changes in the patient's condition. Risks, benefits, and alternatives have been discussed and questions answered. Patient agrees to proceed with procedure.
[2022-11-04 13:16] VITALS: BP 123/73; PULSE 74; RESP 20; O2SAT 100
[2022-11-04 13:26] VITALS: BP 119/83; PULSE 70; RESP 20; O2SAT 100
[2022-11-04 13:36] VITALS: BP 137/83; PULSE 68; RESP 20; O2SAT 99
== END 2022-11-04 13:54 | disposition home or self-care (01) ==
PROVIDERS: PCP Internal Medicine Rheumatology; Visit Provider Internal Medicine Gastroenterology
PROC: 0DJ08ZZ Inspection of Upper Intestinal Tract, Via Natural or Artificial Opening Endoscopic (ICD-10-PCS; CPT 43235; principal; 2022-11-04 13:00)
DX: R14.2 Eructation (principal); K29.70 Gastritis, unspecified, without bleeding; K21.9 Gastro-esophageal reflux disease without esophagitis; D69.3 Immune thrombocytopenic purpura; G25.81 Restless legs syndrome; Z90.49 Acquired absence of other specified parts of digestive tract; Z86.010 Personal history of colon polyps
CPT/HCPCS: 43239; 87081; 88305; J2704; J7120

== ENCOUNTER 2022-11-05 14:44 | Outpatient (NON) | payer MEDICARE, SELFPAY ==
[2022-11-15 17:23] LABS: Pancreatic Elastase, Stool 130 mcg/g
== END 2022-11-05 14:45 | disposition home or self-care (01) ==
LOC: ANHLAB 14:45
PROVIDERS: PCP Internal Medicine Rheumatology; Visit Provider Internal Medicine Gastroenterology
DX: R14.2 Eructation (principal)
CPT/HCPCS: 82653

== ENCOUNTER 2023-01-12 13:20 | Outpatient (CLI) | payer MEDICARE, SELFPAY ==
[2023-01-15 07:34] LABS: Fecal Fat, Ql Normal (Normal)
== END 2023-01-12 13:21 | disposition home or self-care (01) ==
PROVIDERS: PCP Internal Medicine Rheumatology
DX: R14.0 Abdominal distension (gaseous) (principal)
CPT/HCPCS: 82705

== ENCOUNTER 2023-11-13 18:23 | Emergency (ER) | payer MEDICARE, SELFPAY ==
--- NOTE | ~2023-11-13 | CT_ITS ---
EXAMINATION: CT brain wo con DATE: 11/13/2023 18:58 INDICATION: fall . TECHNIQUE: Computed tomography (CT) of the head was performed without intravenous contrast. The mA wa s adjusted according to patient size. Iterative reconstruction technique was employed. The dose-lengt h product was 605.33 mGy-cm. COMPARISON: None. FINDINGS: No acute intracranial hemorrhage or extra-axial fluid collection. No hydrocephalus, mass, or herniation. No acute ischemic infarct. Unremarkable dural venous sinus attenuation. No acute osseous abnormality. The aerated spaces are clear. Mild atrophy and chronic white matter change. Atherosclerotic intracranial calcification. Bilateral l ens replacements. IMPRESSION: No acute intracranial process. Reviewed, dictated and finalized at location K.
--- NOTE | ~2023-11-13 | CT_ITS ---
EXAMINATION: CT cervical spine wo con DATE: 11/13/2023 18:58 INDICATION: fall TECHNIQUE: Computed tomography (CT) of the cervical spine was performed without intravenous contrast. Automated exposure control and iterative reconstruction technique were employed. The dose-length pro duct was 113.91 mGy-cm. COMPARISON: None. FINDINGS: Vertebral Body Alignment: 2 mm retrolisthesis at C3-4, presumably on a degenerative basis. Craniocervical and atlantoaxial alignment: Moderate degenerative change. Alignment intact. Osseous structures/fracture: No evidence of a lytic or blastic process in the visualized spine. No e vidence of acute fracture. Cervical soft tissues: The paraspinal soft tissues planes are maintained. 9 mm right thyroid nodule w hich requires no additional evaluation. Biapical pleural scarring. Degenerative changes: Degenerative changes, without severe neural foraminal or central canal narrowin g. IMPRESSION: No acute fracture or traumatic malalignment in the cervical spine. Reviewed, dictated and finalized at location K.
[2023-11-13 18:31] VITALS: BP 158/89; PULSE 82; RESP 20; TEMP 36.3; O2SAT 100
--- NOTE | 2023-11-13 19:16 | ED.GENADULT ---
HPI - General Adult General Chief complaint: Head Injury Stated complaint: head injury Time Seen by Provider: 11/13/23 18:45 Source: patient Mode of arrival: ambulatory Limitations: no limitations History of Present Illness HPI narrative: This is a 48-year-old female who presents to the ED for chief complaint of a fall this afternoon. Patient reports that she was stepping down off of a chair and she accidentally fell backwards. She landed on her rear end and then hit the back of her head on the floor. Denies LOC, numbness, weakness, nausea, vomiting. Does not take any blood thinners. Denies any further sites of pain or injury. Related Data Home Medications Medication Instructions Recorded Confirmed ascorbic acid (vitamin C) 500 mg 500 mg PO DAILY 10/12/20 10/23/22 tablet biotin 1,000 mcg chewable tablet 1,000 mcg PO DAILY 10/12/20 10/23/22 calcium carbonate 600 mg-vitamin 2 cap PO DAILY 10/12/20 10/23/22 D3 5 mcg (200 unit) capsule (Calcium 600 + D(3)) multivit with minerals-iron 18 1 tablet PO DAILY 10/12/20 10/23/22 mg-folic ac 400 mcg-vit K 25 mcg tablet (Adults Multivitamin) ropinirole 0.25 mg tablet 0.25 mg PO HS 10/12/20 10/23/22 vit C 250 mg-vit E 200 unit-zinc 1 cap PO DAILY 10/12/20 10/23/22 ox 12.5 rg-ivdhcl-fotenq-zeax capsule (ICaps AREDS2) Vitamin D3 1 tab-cap PO DAILY 10/23/22 10/23/22 magnesium 1 tab-cap PO DAILY 10/23/22 10/23/22 Allergies Allergy/AdvReac Type Severity Reaction Status Date / Time No Known Allergies Allergy Verified 11/13/23 18:34 Review of Systems Review of Systems: All systems as dictated in HPI [facility] Past Medical History Medical History Chronic GERD Chronic ITP (idiopathic thrombocytopenic purpura) GERD (gastroesophageal reflux disease) History of colon polyps Restless leg syndrome Surgical History Surgical History H/O cataract extraction H/O: hysterectomy History of tonsillectomy and adenoidectomy Hx of cholecystectomy S/P colonoscopic polypectomy Family History Family History Mother Breast cancer Father Heart disease Sibling Diabetes mellitus Social History Social History Social History: The patient is single and has 1 son who is the durable power family law attorney for healthcare. The patient is retired from [employer]. She is a lifelong nonsmoker. She does not use any marijuana or illicit drugs. Socially drinks Code status full code Smoking status: Never smoker Alcohol intake: current Drinks per week: 2 Alcohol use details: socially Substance use: never Substance use type: does not use Living arrangements: alone Spiritual care concerns: No Exam Narrative: GENERAL: Well-appearing, well-nourished, and in no acute distress. HEAD: Normocephalic, atraumatic. Mild soft tissue hematoma. EYES: PERRLA and EOMI. ENT: Nares clear, no rhinorrhea or epistaxis. Mucous membranes moist. Oropharynx without tonsillar hypertrophy exudate or other lesions. NECK: Supple. No adenopathy or masses. CHEST: No respiratory distress. Clear to auscultation. No wheezes rales or rhonchi HEART: Regular rate and rhythm. No murmur heard. Normal peripheral pulses. ABDOMEN: Soft, nontender, nondistended, normal active bowel sounds. MSK: Normal range of motion. No edema. SKIN: Warm, dry, no rash. NEURO: Alert and oriented x4. No focal deficits. PSYCH: Normal mood and affect. Course Vital Signs Vital signs: Vital Signs Temperature 97.4 F L 11/13/23 18:31 Pulse Rate 82 11/13/23 18:31 Respiratory Rate 20 11/13/23 18:31 Blood Pressure 158/89 H 11/13/23 18:31 Pulse Oximetry 100 11/13/23 18:31 Oxygen Delivery Room Air 11/13/23 18:31 Temperature
[2023-11-13 19:25] VITALS: BP 149/76; PULSE 75; RESP 14; O2SAT 100
== END 2023-11-13 19:27 | disposition home or self-care (01) ==
PROVIDERS: Emergency Provider Physician Assistant; PCP Internal Medicine Rheumatology
DX: S09.90XA Unspecified injury of head, initial encounter (principal); W07.XXXA Fall from chair, initial encounter; G25.81 Restless legs syndrome; K21.9 Gastro-esophageal reflux disease without esophagitis; D69.3 Immune thrombocytopenic purpura
CPT/HCPCS: 70450; 72125; 99284

== ENCOUNTER 2024-11-01 13:10 | Emergency (ER) | payer MEDICARE, SELFPAY ==
--- NOTE | ~2024-11-01 | CT_ITS ---
CLINICAL INDICATION: Right upper quadrant pain COMPARISON: None. TECHNIQUE: An enhanced CT of the abdomen and pelvis was performed utilizing multislice spiral Fitcline ue reconstructed at 5 mm slice thickness. Coronal and sagittal reconstructions were performed. This CT examination was performed utilizing dose reduction techniques. DLP: 395 mGy-cm FINDINGS/OBSERVATIONS: Lung: Biapical scarring. The remainder of the bilateral lung swift are clear. The heart is of normal size, without pericardial effusion. Mediastinum: No pathologically enlarged or morphologically suspicious lymph nodes are identified within the medias tinum, bilateral axilla, within the soft tissues of the anterior chest wall. Soft tissues of the chest: Unremarkable. Bones of the chest: No acute fracture. No lytic or blastic lesions are identified. Liver: The liver enhances homogeneously and is enlarged measuring 20 cm in longitudinal dimension. The air opacified stomach demonstrates a small herniation of gastric wall into the space just caudal to the falciform ligament (axial series, image 132 through 136). Adjacent to this small herniation, in segment 3 of the liver, is a well-circumscribed 15 mm focus of fluid attenuation, most likely a cyst. Gallbladder and biliary system: The gallbladder is surgically absent. Pancreas: The pancreas enhances homogeneously, without ductal dilatation. Spleen: The spleen enhances homogeneously, and is not enlarged. Kidneys: The bilateral kidneys enhance symmetrically without hydronephrosis or renal calculi. Adrenal glands: Unremarkable. Gastrointestinal tract: Small hiatal hernia is present. The air opacified stomach demonstrates a small herniation of gastric wall into the space just caudal to the falciform ligament (axial series, image 132 through 136). Adjacent to this small herniation, in segment 3 of the liver is a 15 mm focus of fluid attenuation, m ost likely a cyst. Fecal stasis within the colon which is otherwise unremarkable. Thickening and induration of the presacral fat, a nonspecific finding. Appendix: The appendix is not definitively visualized. However, no pericecal inflammatory change is identified suggest the presence of acute appendicitis. Vasculature: Trace calcified atherosclerotic disease is present. No aneurysmal dilatation. Lymph nodes: Scattered nonpathologically enlarged lymph nodes within the root of the mesentery and deep in the pel vis. Pelvic structures: The bladder is distended and otherwise unremarkable. The prostate gland is not enlarged. Body wall and musculoskeletal: Small fat-containing umbilical hernia. Age-appropriate degenerative disease within the lumbosacral spine. Compression of the superior endplate of L2, age indeterminate. IMPRESSION: Hepatomegaly. Small herniation of air opacified stomach into the space just caudal to the falciform ligament, witho ut proximal distention. Thickening and induration of the presacral fat. Reviewed, dictated and finalized at location A. IMPRESSION: Hepatomegaly. Small herniation of air opacified stomach into the space just caudal to the fal ciform ligament, without proximal distention. Thickening and induration of the presacral fat.
[2024-11-01 13:13] VITALS: BP 138/80; PULSE 92; RESP 16; TEMP 36.2; O2SAT 100
--- OUTSIDE RECORDS SUMMARY | 2024-11-01 13:14 | XMS_ITS ---
Author Organization [facility] Address [address] [place] [address] [address] [place] [address] Care Team Providers Care Identity Management Developer Name Role Phone Kemi VILLAR, [place] Primary Care Provider Maxime Mondragon Unavailable [phone] REASON FOR VISIT Question-LVM 09/19/24 Encounters Encounter Location Date Provider Diagnosis [address] [place] [address] 09/15/2024 Maxime Argueta Plan Of Treatment No Information Progress Notes * Estelita AVERY SDOB: 5 (78 yo F)Acc No.[id number]:09/15/2024 Patient: Estelita DIXON :1945 A ge:78 Y S ex:Female Address:[facility] [place] [address] * true * Date: Generated for Prabhakari bee/Fadebbieg/eTransmitting on: 0 11/01/2024 01:13 PM CDT
--- OUTSIDE RECORDS SUMMARY | 2024-11-01 13:14 | XMS_ITS ---
Author Organization [facility], [facility] Address [address] [place], [place] [address] [place] [address] Care Team Providers Care Repulping Supervisor Name Role Phone Kemi VILLAR, [place] Primary Care Provider Maxime Mondragon Unavailable [phone] REASON FOR VISIT VM: refill for Ibsrela Medications Medication SIG (Take, Route, Frequency, Duration) Notes Start Date End Date Status Ibsrela 50 MG 1 tablet immediately before meals Orally Twice a day for 30 days 08/25/2024 A ctive Encounters Encounter Location Date Provider [facility] [address] [place] [address] 10/13/2024 Maxime Argueta Plan Of Treatment Medication Medication Name Sig Start Date Stop Date Notes Ibsrela 50 MG 1 tablet immediately before meals Orally Twice a day for 30 days 08/25/2024 Progress Notes * Estelita AVERY SDOB: 5 (79 yo F)Acc No.[id number]:10/13/2024 Patient: Estelita DIXON :1945 A ge:79 Y S ex:Female Address:[facility] [place] [address] * Refills Refill Ibsrela Tablet, 50 MG, Orally, 60, 1 tablet immediately before meals, Twice a day, 30 days, Refills=8 Subjective: * Chief Complaints: * V M: refill for Ibsrela * Medical History: * Surgical History: * Hospitalization/Major Diagno stic Procedure: * Medications: Objective: * Vitals: * Physical Examination: Assessment: Plan: * Treatment: * Procedure Codes: * true * Date: Generated for Neha Begum/Monet on: 0 11/01/2024 01:14 PM CDT
--- OUTSIDE RECORDS SUMMARY | 2024-11-01 13:14 | XMS_ITS ---
Author Organization [facility], [facility] Address [address] [place], [place] [address] [place] [address] Care Team Providers Care Second Ride Fare Collector Name Role Phone Kemi VILLAR, [place] Primary Care Provider Maxime Mondragon Unavailable [phone] REASON FOR VISIT Ibsrela 90 day Script-lvm 08/25/24 Medications Medication SIG (Take, Route, Frequency, Duration) Notes Start Date End Date Status Ibsrela 50 MG 1 tablet immediately before meals Orally Twice a day for 30 day(s) 08/25/2024 Active Encounters Encounter Location Date Provider Diagnosis [facility] [place] [address] 08/23/2024 Maxime Argueta Plan Of Treatment Medication Medication Name Sig Start Date Stop Date Notes Ibsrela 50 MG 1 tablet immediately before meals Orally Twice a day for 30 day(s) 08/25/2024 Progress Notes * Estelita AVERY SDOB: (78 yo F)Acc No.[id number]:08/23/2024 Patient: Estelita DIXON :1945 A ge:78 Y S ex:Female Address:[place] [address] * Refills Start Ibsrela Tablet, 50 MG, Orally, 60, 1 tablet immediately before meals, Twice a day, 30 day(s) * true * Date: Generated for Neha gamboa/Ashley/eTransmitting on: 0 11/01/2024 01:13 PM CDT
--- OUTSIDE RECORDS SUMMARY | 2024-11-01 13:14 | XMS_ITS | Patient Health Record ---
Author Organization [employer] Address [address] [facility] maame Kaplan. [address] [place] [id number] Care Team Providers Care Oriental [facility] Practitioner Name Role Phone Kemi VILLAR, [place] Primary Care Provider Maxime Mondragon Unavailable [phone] Allergies No Known Allergies Results Component Value Reference Range Notes Pathology Report Reviewed date:12/08/2023 03:39:09 PM Interpretation: Performing Lab: Notes/Report: DIAGNOSES A. Duodenum , Biopsy: -Duodenal mucosa with no diagnostic abnormality. -Normal villous architecture; no evidence of Celiac sprue. -Alcian blue/PAS stain to identify gastric foveolar metaplasia and Whipple's disease is negative; no parasites are seen. B. Gastric Antrum , Biopsy: -Patchy acute erosive gastritis with epithelial reparative changes. -Alcian blue/PAS stain is negative for intestinal metaplasia. -Giemsa stain is negative for Helicobacter pylori organisms; confirmed with immunohistochemical stain. -Negative for dysplasia and malignancy. C. Ascending Colon Polyps x 2, Polypectomy: -Sessile serrated polyp/adenoma. -Tubular adenoma. D. Right Colon , Biopsy: -No diagnostic abnormality. -No evidence of chronic or active colitis, including lymphocytic and collagenous colitis. -Negative for dysplasia or malignancy. E. Left Colon , Biopsy: -No diagnostic abnormality. -No evidence of chronic or active colitis, including lymphocytic and collagenous colitis. -Negative for dysplasia or malignancy. COMMENTS B. B. B. As there is no evidence of Helicobacter pylori infection, other causes of acute on chronic mucosal injury including bile acid reflux, alcohol, stress, radiation, viral infection (eg, cytomegalovirus) and vascular injury are all potential etiological considerations. No histologic features of CMV gastritis are present. CLINICAL HISTORY Dyspepsia. Change in bowel habits. Gastritis, characterized by adherent blood, congestion, edema and friability. Two 3 to 7 mm polyps in the ascending colon. Diverticulosis in the sigmoid colon. GROSSING DESCRIPTION A. The specimen is received in a Formalin-filled container labeled with the patient's name and designated Duodenum It contains 3 fragments of correia tissue that measure 2x1x1, 2x1x1 and 3x2x1 mm. The specimen was entirely submitted into a single cassette for processing. B. The specimen is received in a Formalin-filled container labeled with the patient's name and designated Gastric Antrum It contains multiple fragments of correia tissue that measure from <1x1x1 to 3x1x1 mm. The specimen was entirely submitted into a single cassette for processing. C. The specimen is received in a Formalin-filled container labeled with the patient's name and designated Ascending Colon Polyps x2 It contains 2 fragments of correia tissue that measure 2x2x1 and 9x4x1 mm - bisected. The specimen was entirely submitted into a single cassette for processing. D. The specimen is received in a Formalin-filled container labeled with the patient's name and designated Right Colon It contains 2 fragments of correia tissue that measure 1x1x1 and 2x1x1 mm. The specimen was entirely submitted into a single cassette for processing. E. The specimen is received in a Formalin-filled container labeled with the patient's name and designated Left Colon It contains 2 fragments of correia tissue that measure 2x1x1 and 4x1x1 mm. The specimen was entirely submitted into a single cassette for processing. MICROSCOPIC DESCRIPTION Complete 100 microscopic examination is performed. The findings are included in the diagnosis rendered. Specimens A, B, C, D, and E were evaluated with H&E stain. Specimen B was evaluated with Rapid Giemsa stain. Specimens A and B were evaluated with Alcian Blue PAS stain. Specimen B was evaluated with Helicobacter Pylori immunohistochemistry stain with adequate positive controls. Textual Pathology Report SEE NOTES Reason For Referral No Information Medications Medication SIG (Take, Route, Frequency, Duration) Notes Start Date End Date Status Pantoprazole Sodium 40 MG TAKE 1 TABLET BY MOUTH TWICE DAILY Orally Twice a day for 90 days Active OTC/Vitamins Magnesium, MVI, Vit C, Calcium with Vit D3, Vit B12, Vit D3, Biotene, AREDS2 Active Sucralfate 1 GM TAKE 1 TABLET BY MOUTH TWICE DAILY ON AN EMPTY STOMACH for 90 days Active Famotidine Active Ibsrela 50 MG 1 tablet immediately before meals Orally Twice a day for 30 days 08/25/2024 Active rOPINIRole HCl Activ e Restasis Active Albuterol Sulfate Ac tive metroNIDAZOLE Active Immunizations Vaccine Route Administration Date Status Comme nts Influenza Vaccination Unknown 04/14/2022 Administered Pneumococcal polysaccharide PPV23 Unknown 11/13/2013 Ad ministered Tdap Unknown 03/15/2023 Administered Social History Tobacco Use: Social History Observation Description Date Details (start date - stop date) Never Smoker NA - NA Tobacco Use/Smoking Question Answer Notes Are you a nonsmoker Problems Problem Type SNOMED Code ICD Code Onset Dates Problem Status W/U Status Risk Notes Problem 374817774 Esophageal obstruction (K22.2) Active confirmed Problem 5541063 Gastritis, unspecified, without bleeding (K29.70) Active confirmed Problem 298529713 Diverticulosis o f large intestine without perforation or abscess without bleeding (K57.30) Active confirmed Problem 656212909 GERD (gastroesophageal reflux disease) (K21.9) Active confirmed Problem Flatulence, eructation and gas pain (250622818) Bloating (R14.0) Active confirmed Problem 31730150 Dysphagia (R13.10) Active confirmed Problem 14116204 Constipation (K59.00) Active confirmed Problem 426552491 Indigestion (K30) Active confirmed Problem 021112530 Dyssynergic defecation (K59.02) Active confirmed Vital Signs Height 64 in 07/26/2024 Weight 132 lbs 07/26/2024 BMI 22.66 kg/m2 07/26/2024 Procedures Procedure Date Ordered Date Performed Result Body Sit e Pelvic Floor Therapy 07/26/2024 N/A Encounters Encounter Location Date Provider Diagnosis [facility] [id number] [place] [address] 11/05/2023 Maxime Ramgopal Change in bowel habi t R19.4 ; Diverticulosis of large intestine without perforation or abscess without bleeding K57.30 ; Benign neoplasm of ascending colon D12.2 ; Epigastric pain R10.13 ; Gastritis, unspecified, without bleeding K29.70 ; Diaphragmatic hernia without obstruction or gangrene K44.9 and Esophageal obstruction K22.2 [facility], [facility] [address] [place] [address] 07/26/2024 Maxime Ramgopal Dyssynergic defecati on K59.02 ; GERD (gastroesophageal reflux disease) K21.9 ; Constipation K59.00 and Bloating R14.0 [facility], [address] [place] [address] [facility] [address] [place] [address] [facility] Dyssynergic defecati on K59.02 [facility], [address] [place] [address] 07/26/2024 [facility] [address] [place] [address] 07/27/2024 [facility] [address] [place] [address] 08/23/2024 [facility] [address] [place] [address] 09/15/2024 [facility], [address] [place] [address] 10/13/2024 [facility] Assessments Encounter Date Diagnosis (ICD Code) Assessment Notes Treatment Notes Treatment Clinical Notes Section Notes 11/05/2023 Change in bowel habit (ICD-10 - R19.4) 07/26/2024 GERD (gastroesophageal reflux disease) (ICD-10 - K21.9) Estelita is a pleasant 78 year old with 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 We had a lengthy conversation regarding options for her bowel irregularity. We decided to pursue pelvic floor PT for dyssynergia. WIll try Ibsrela, given samples. Instructed to use daily not BID when starting. Can cut back on fruits if effective as she is finding it challenging to keep up with that measure. Will continue PPI, carafate and pepcid. Followup in 6 months. Spent 40 minutes reviewing records, face to face interaction, and in documentation. 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 We had a lengthy conversation regarding options for her bowel irregularity. We decided to pursue pelvic floor PT for dyssynergia. WIll try Ibsrela, given samples. Instructed to use daily not BID when starting. Can cut back on fruits if effective as she is finding it challenging to keep up with that measure. Will continue PPI, carafate and pepcid. Followup in 6 months. Spent 40 minutes reviewing records, face to face interaction, and in documentation. 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 We had a lengthy conversation regarding options for her bowel irregularity. We decided to pursue pelvic floor PT for dyssynergia. WIll try Ibsrela, given samples. Instructed to use daily not BID when starting. Can cut back on fruits if effective as she is finding it challenging to keep up with that measure. Will continue PPI, carafate and pepcid. Followup in 6 months. Spent 40 minutes reviewing records, face to face interaction, and in documentation. 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 We had a lengthy conversation regarding options for her bowel irregularity. We decided to pursue pelvic floor PT for dyssynergia. WIll try Ibsrela, given samples. Instructed to use daily not BID when starting. Can cut back on fruits if effective as she is finding it challenging to keep up with that measure. Will continue PPI, carafate and pepcid. Followup in 6 months. Spent 40 minutes reviewing records, face to face interaction, and in documentation. 11/05/2023 Benign neoplasm of ascending colon (ICD-10 - D12.2) 11/05/2023 Epigastric pain (ICD-10 - R10.13) 11/05/2023 Gastritis, unspecified, without bleeding (ICD-10 - K29.70) 11/05/2023 Diaphragmatic hernia without obstruction or gangrene (ICD-10 - K44.9) 11/05/2023 Esophageal obstruction (ICD-10 - K22.2) Plan Of Treatment Pending Test Test Name Order Date Upper Endoscopy 08/27/2023 Colonoscopy 08/27/2023 FECAL FAT, QUALITATIVE 01/02/2023 Initiate SIBO 01/02/2023 Pelvic Floor Therapy 07/26/2024 Insurance Providers Payer Name Payer Address Payer Phone Subscriber Number Group Number Insured Name Patient Relationship to Insured Coverage Start Date Coverage End Date Medicare E2 [address] [address] [place] [address] [id number] BennieEstelita Self - patient is the insured [employer] Medicare Supplement [address] [place] [address] [id number] BennieEstelita Self - patient is the insured Medical (General) History Medical History History ICD Code Hiatal Hernia Colon Polyps GERD Diverticulosis Raynaud's Syndrome Asthma Arthropathy Erythromelalgia / Fibromyalgia Restless Leg Syndrome Hyperlipidemia Peripheral Neuropathy Surgical History Surgery Date(Month/Year) Endoscopy 10/2023 Colonoscopy 10/2023 Cholecystectomy 2008 Cataract Extraction 2016 Osteoporosis x4 Hysterectomy 1988 [place] Teeth Extraction 1956 Tonsillectomy
--- NOTE | 2024-11-01 14:09 | ED_ITS ---
HPI - Abdominal Pain General Chief Complaint: Abdominal Pain <Krista Stone PA-C - Last Filed: 11/01/24 14:17> Stated Complaint: bulge on stomach <Krista Stone PA-C - Last Filed: 11/01/24 14:17> Time Seen by Provider: 11/01/24 14:09 <Krista Stone PA-C - Last Filed: 11/01/24 14:17> Focused HPI: Patient is an 79 y/o female who presents to the ED with c/o R sided chest/abd pain. Patient reports the pain is present in her R upper abdomen, R lower chest. States pain started last Thursday. Pain initially was only present with coughing. She notes she was diagnosed with Influenza 10/11 and is still having a cough and congestion r/t this. She then noticed a bulge in his R upper abdomen along the area of pain this morning. States pain is more constant now, worse today, with any type of movement. Denies pain aggravated with eating. Hx of cholecystectomy. Reports mild SOB. Otherwise denies L sided chest pain. GENERAL: Well-appearing, well-nourished, and in no acute distress. HEAD: Normocephalic, atraumatic. CHEST: Clear to auscultation. ?No respiratory distress. HEART: Regular rate and rhythm.? ABD: TTP along epigastric region, R upper abdomen and along inferior medial rib cage. NEURO: ?Alert and oriented x3. Patient screened in triage and initial orders placed.? ?Additional care and disposition to be based upon?diagnostic testing and treatment. <Krista Stone PA-C - Last Filed: 11/01/24 14:17> Source: patient <Krista Stone PA-C - Last Filed: 11/01/24 14:17> Mode of arrival: ambulatory <Krista Stone PA-C - Last Filed: 11/01/24 14:17> Limitations: no limitations <MELLISSA Suh Last Filed: 11/01/24 14:17> History of Present Illness HPI narrative: I agree with the above HPI <Miguel Angel Olivas MD - Last Filed: 11/01/24 20:07> Related Data Home Medications: Home Medications ?Medication ?Instructions ?Recorded ?Confirmed ?Last Taken ?Type ascorbic acid (vitamin C) 500 mg 500 mg PO DAILY 10/12/20 10/23/22 10/20/20 History tablet biotin 1,000 mcg chewable tablet 1,000 mcg PO DAILY 10/12/20 10/23/22 10/20/20 History calcium 600 mg (as 2 cap PO DAILY 10/12/20 10/23/22 10/20/20 History carbonate)-vitamin D3 5 mcg (200 unit) capsule (Calcium 600 + D(3)) multivit with minerals-iron 18 1 tablet PO DAILY 10/12/20 10/23/22 10/21/20 History mg-folic ac 400 mcg-vit K 25 mcg tablet (Adults Multivitamin) ropinirole 0.25 mg tablet 0.25 mg PO HS 10/12/20 10/23/22 10/20/20 History vit C 250 mg-vit E 200 unit-zinc 1 cap PO DAILY 10/12/20 10/23/22 10/20/20 History ox 12.5 dx-cyvirf-jhctac-zeax capsule (ICaps AREDS2) Vitamin D3 1 tab-cap PO DAILY 10/23/22 10/23/22 Unknown History magnesium 1 tab-cap PO DAILY 10/23/22 10/23/22 Unknown History <Krista Stone PA-C - Last Filed: 11/01/24 14:17> Allergies/Adverse Reactions: Allergies Allergy/AdvReac Type Severity Reaction Status Date / Time No Known Allergies Allergy Verified 11/01/24 13:15 <Krista Stone PA-C - Last Filed: 11/01/24 14:17> Review of Systems 2 Review of Systems: All systems reviewed & are unremarkable except as noted in HPI and below <Miguel Angel Olivas MD - Last Filed: 11/01/24 20:07> [facility] Past Medical History Medical History: Medical History Chronic GERD Chronic ITP (idiopathic thrombocytopenic purpura) GERD (gastroesophageal reflux disease) History of colon polyps Restless leg syndrome <Krista Stone PA-C - Last Filed: 11/01/24 14:17> Surgical History Surgical History: Surgical History H/O cataract extraction H/O: hysterectomy History of tonsillectomy and adenoidectomy Hx of cholecystectomy S/P colonoscopic polypectomy <Krista Stone PA-C - Last Filed: 11/01/24 14:17> Family History Family History: Family History Mother Breast cancer Father Heart disease Sibling Diabetes mellitus <Krista Stone PA-C - Last Filed: 11/01/24 14:17> Social History Social History: Social History Social History: The patient is single and has 1 son who is the durable power still operator batch or continuous for healthcare. The patient is retired from [employer]. She is a lifelong nonsmoker. She does not use any marijuana or illicit drugs. Socially drinks Code status full code Smoking status: Never smoker Alcohol intake: current Drinks per week: 2 Alcohol use details: socially Substance use: never Substance use type: does not use Living arrangements: alone Spiritual care concerns: No <Krista Stone PA-C - Last Filed: 11/01/24 14:17> Exam 2 Narrative: APPEARANCE: Well appearing, no pain, no distress, well-nourished. HEAD: normocephalic, atraumatic. EYES: PERRLA/EOMI, conjunctivae clear. NOSE: Normal no drainage EARS:TMS clear with good light reflex. THROAT: Pharynx clear, no exudate. NECK: Supple. No adenopathy, no masses. RESPIRATORY: Airway patent, respirations nonlabored. Clear to auscultation bilaterally, no rales, rhonchi, wheezing. CARDIOVASCULAR: Regular rate and rhythm without murmurs rubs or gallops. ABDOMINAL: Epigastric tenderness to palpation MUSCULOSKELETAL: Moves all extremities. Strength/ROM intact, No edema, No calf tenderness. NEURO: Alert. Cranial nerves II through XII intact. Good gait. Good coordination SKIN: Warm, dry. Normal Color <Miguel Angel Olivas MD - Last Filed: 11/01/24 20:07> Course Vital Signs Vital signs: Vital Signs Temperature 97.1 F L 11/01/24 13:13 Pulse Rate 92 11/01/24 13:13 Respiratory Rate 16 11/01/24 13:13 Blood Pressure 138/80 11/01/24 13:13 Pulse Oximetry 100 11/01/24 13:13 Oxygen Delivery Room Air 11/01/24 13:13 Temperature 98.1 F 11/01/24 17:08 Pulse Rate 69 11/01/24 17:08 Respiratory Rate 15 11/01/24 17:08 Blood Pressure 130/75 11/01/24 17:08 Pulse Oximetry 100 11/01/24 17:08 Oxygen Delivery Room Air 11/01/24 13:13 <Krista Stone PA-C - Last Filed: 11/01/24 14:17> Vital Signs Temperature 97.1 F L 11/01/24 13:13 Pulse Rate 92 11/01/24 13:13 Respiratory Rate 16 11/01/24 13:13 Blood Pressure 138/80 11/01/24 13:13 Pulse Oximetry 100 11/01/24 13:13 Oxygen Delivery Room Air 11/01/24 13:13 Temperature 98.1 F 11/01/24 17:08 Pulse Rate 69 11/01/24 17:08 Respiratory Rate 15 11/01/24 17:08 Blood Pressure 130/75 11/01/24 17:08 Pulse Oximetry 100 11/01/24 17:08 Oxygen Delivery Room Air 11/01/24 13:13 <Miguel Angel Olivas MD - Last Filed: 11/01/24 20:07> MDM - Abdominal Pain MDM Narrative Medical decision making narrative: MSE by JACK in triage. <Krista Stone PA-C - Last Filed: 11/01/24 14:17> MSE by JACK in triage. 79-year-old female presents emergency department for evaluation for epigastric abdominal pain. Patient is currently afebrile with no leukocytosis and hemoglobin of 12.4. INR is 1.1. Patient did have a CT scan showing small herniation of the stomach related to the falciform ligament. No evidence of obstruction or inflammatory changes. Patient is resting comfortably. Close follow-up with surgery as outpatient. <Miguel Angel Olivas MD - Last Filed: 11/01/24 20:07> Differential Diagnosis Differential diagnosis: Likely abdominal pain, acute appendicitis, constipation, diverticulitis, gastroenteritis and small bowel obstruction <Miguel Angel Olivas MD - Last Filed: 11/01/24 20:07> Lab Data Attestation: I reviewed the patient's lab results. <Miguel Angel Olivas MD - Last Filed: 11/01/24 20:07> Result diagrams: 11/01/24 14:22 11/01/24 14:22 <Krista Stone PA-C - Last Filed: 11/01/24 14:17> Labs: Lab Results 11/01/24 Range/Units 14:22 WBC 7.4 (4.5-10.0) K/mm3 RBC 4.21 (4.2-5.4) M/mm3 Hgb 12.4 (12.0-15.0) g/dL Hct 38.5 (37.0-47.0) % MCV 91.4 (80-100) fl MCH 29.5 (26-34) pg MCHC 32.2 (32-36) g/dl RDW 13.4 (11.5-14.5) % Plt Count 272 (150-375) k/mm3 MPV 9.5 (7.4-10.4) fl Immature Gran % (Auto) 0.3 (0-0.5) % Neut % (Auto) 68.3 (45.5-73.1) % Lymph % (Auto) 20.6 (18.3-44.2) % Gillespie % (Auto) 8.9 H (2.6-8.5) % Eos % (Auto) 1.5 (0-4.4) % Baso % (Auto) 0.4 (0.2-1.2) % Lymph # (Auto) 1.53 (0.9-3.2) K/mm3 Gillespie # (Auto) 0.7 H (0.1-0.6) K/mm3 Eos # (Auto) 0.1 (0-0.3) K/mm3 Baso # (Auto) 0.0 (0.0-0.1) K/mm3 Abs Immat Gran (auto) 0.02 (0.00-0.031) K/mm3 Absolute Neuts (auto) 5.1 (1.3-6.7) K/mm3 Absolute Nucleated RBC 0.000 (0.0-0.012) K/mm3 Nucleated RBC % 0.0 (0.0-0.2) % PT 14.4 (11.1-14.7) Seconds INR 1.1 APTT 29.4 (22.3-36.8) Seconds Sodium 133 L (137-145) mmol/L Potassium 4.1 (3.4-5.0) mmol/L Chloride 100 (98-107) mmol/L Carbon Dioxide 26 (22-30) mmol/L Anion Gap 7 (4-12) mmol/L BUN 18 H (7-17) mg/dL Creatinine 0.79 (0.7-1.0) mg/dL Estim Creat Clear Calc 43 ml/min Estimated GFR > 60 (59 - ) Glucose 98 (65-110) mg/dL Calcium 8.7 (8.4-10.2) mg/dL Total Bilirubin 0.8 (0.2-1.3) mg/dL AST 53 H (14-36) U/L ALT 30 (6-35) U/L Alkaline Phosphatase 102 (38-126) U/L Troponin I < 0.012 (0.000-0.034) ng/mL Total Protein 7.0 (6.3-8.2) g/dL Albumin 4.0 (3.5-5.1) g/dL Lipase 51 (23-300) U/L <Krista Stone PA-C - Last Filed: 11/01/24 14:17> Lab Results 11/01/24 Range/Units 14:22 WBC 7.4 (4.5-10.0) K/mm3 RBC 4.21 (4.2-5.4) M/mm3 Hgb 12.4 (12.0-15.0) g/dL Hct 38.5 (37.0-47.0) % MCV 91.4 (80-100) fl MCH 29.5 (26-34) pg MCHC 32.2 (32-36) g/dl RDW 13.4 (11.5-14.5) % Plt Count 272 (150-375) k/mm3 MPV 9.5 (7.4-10.4) fl Immature Gran % (Auto) 0.3 (0-0.5) % Neut % (Auto) 68.3 (45.5-73.1) % Lymph % (Auto) 20.6 (18.3-44.2) % Gillespie % (Auto) 8.9 H (2.6-8.5) % Eos % (Auto) 1.5 (0-4.4) % Baso % (Auto) 0.4 (0.2-1.2) % Lymph # (Auto) 1.53 (0.9-3.2) K/mm3 Gillespie # (Auto) 0.7 H (0.1-0.6) K/mm3 Eos # (Auto) 0.1 (0-0.3) K/mm3 Baso # (Auto) 0.0 (0.0-0.1) K/mm3 Abs Immat Gran (auto) 0.02 (0.00-0.031) K/mm3 Absolute Neuts (auto) 5.1 (1.3-6.7) K/mm3 Absolute Nucleated RBC 0.000 (0.0-0.012) K/mm3 Nucleated RBC % 0.0 (0.0-0.2) % PT 14.4 (11.1-14.7) Seconds INR 1.1 APTT 29.4 (22.3-36.8) Seconds Sodium 133 L (137-145) mmol/L Potassium 4.1 (3.4-5.0) mmol/L Chloride 100 (98-107) mmol/L Carbon Dioxide 26 (22-30) mmol/L Anion Gap 7 (4-12) mmol/L BUN 18 H (7-17) mg/dL Creatinine 0.79 (0.7-1.0) mg/dL Estim Creat Clear Calc 43 ml/min Estimated GFR > 60 (59 - ) Glucose 98 (65-110) mg/dL Calcium 8.7 (8.4-10.2) mg/dL Total Bilirubin 0.8 (0.2-1.3) mg/dL AST 53 H (14-36) U/L ALT 30 (6-35) U/L Alkaline Phosphatase 102 (38-126) U/L Troponin I < 0.012 (0.000-0.034) ng/mL Total Protein 7.0 (6.3-8.2) g/dL Albumin 4.0 (3.5-5.1) g/dL Lipase 51 (23-300) U/L <Miguel Angel Olivas MD - Last Filed: 11/01/24 20:07> Imaging Data Radiologist's impression: ITS Impressions Chest/Abdomen/Pelvis CT 11/01/24 15:10 IMPRESSION: Hepatomegaly. Small herniation of air opacified stomach into the space just caudal to the falciform ligament, without proximal distention. Thickening and induration of the presacral fat. <Krista Stone PA-C - Last Filed: 11/01/24 14:17> ITS Impressions Chest/Abdomen/Pelvis CT 11/01/24 15:10 IMPRESSION: Hepatomegaly. Small herniation of air opacified stomach into the space just caudal to the falciform ligament, without proximal distention. Thickening and induration of the presacral fat. <Miguel Angel Olivas MD - Last Filed: 11/01/24 20:07> Discharge Plan Discharge Clinical Impression: Gastric anomaly <Krista Stone PA-C - Last Filed: 11/01/24 14:17> Patient Disposition: Home <Krista Stone PA-C - Last Filed: 11/01/24 14:17> Condition: Stable <Krista Stone PA-C - Last Filed: 11/01/24 14:17> Instructions: Antibiotic Form <Krista Stone PA-C - Last Filed: 11/01/24 14:17> Additional Instructions: Tylenol for pain control. Have close follow-up with surgery as outpatient. If you have any worsening symptoms then please call or return to the emergency department. <Krista Stone PA-C - Last Filed: 11/01/24 14:17> Patient Language: Citizen Of [place] <Krista Stone PA-C - Last Filed: 11/01/24 14:17> Prescriptions: No Action magnesium hydroxide [[place] Milk of Magnesia] 400 mg/5 mL suspension 400 mg PO DAILY PRN (Reason: constipation) Qty: 355 5RF pantoprazole [Protonix] 40 mg tablet,delayed release (DR/EC) 40 mg PO DAILY Qty: 60 12RF Creon 12,000-38,000 -60,000 unit capsule,delayed release(DR/EC) 2 cap PO TID Qty: 180 12RF Rx Instructions: administer with meals and/or snacks ascorbic acid (vitamin C) 500 mg Tablet 500 mg PO DAILY ropinirole 0.25 mg tablet 0.25 mg PO HS Calcium 600 + D(3) 600 mg calcium- 200 unit Capsule 2 cap PO DAILY Adults Multivitamin 18 mg iron-400 mcg-25 mcg Tablet 1 tablet PO DAILY biotin 1,000 mcg Tablet,Chewable 1,000 mcg PO DAILY ICaps AREDS2 250 mg-200 unit -12.5 mg-1 mg Capsule 1 cap PO DAILY Vitamin D3 1 tab-cap PO DAILY magnesium 1 tab-cap PO DAILY <Krista Stone PA-C - Last Filed: 11/01/24 14:17> Follow-up/Referrals: Priya Lombardo MD [Physician] - [facility],Daxa Parrish MD [Primary Care Provider] - <Krista Stone PA-C - Last Filed: 11/01/24 14:17>
--- NOTE | 2024-11-01 14:11 | ECG_ITS ---
Test Date: 2024-11-01 14:16:00 Measurements Intervals [place] Rate: 75 P: 67 IA: 124 QRS: 68 QRSD: 77 T: 59 QT: 350 QTc: 393 Interpretive Statements SINUS RHYTHM POSSIBLE LEFT ATRIAL ENLARGEMENT [-0.1mV P WAVE IN V1/V2] ANTEROSEPTAL ST SEGMENT ELEVATION, CONSIDER INJURY PATTERN, EARLY REPOLARIZATION OR ANEURYSM ABNORMAL ECG No previous ECG available for comparison Electronically Signed On 11-02-2024 08:16:11 CDT by Varun Watson M.D.
[2024-11-01 14:34] LABS: Basophils Percent Auto 0.4 % (0.2-1.2); Eosinophils Absolute Auto 0.1 K/mm3 (0-0.3); Eosinophils Percent Auto 1.5 % (0-4.4); Hematocrit 38.5 % (37.0-47.0); Hemoglobin 12.4 g/dL (12.0-15.0); Immature Granulocyte Absolute 0.02 K/mm3 (0.00-0.031); Immature Granulocyte Percent A 0.3 % (0-0.5); Lymphocytes Absolute Auto 1.53 K/mm3 (0.9-3.2); Lymphocytes Percent Auto 20.6 % (18.3-44.2); Mean Corpuscular HGB Conc 32.2 g/dl (32-36); Mean Corpuscular Hemoglobin 29.5 pg (26-34); Mean Corpuscular Volume 91.4 fl (80-100); Mean Platelet Volume 9.5 fl (7.4-10.4); Monocytes Absolute Auto 0.7 K/mm3 (0.1-0.6); Monocytes Percent Auto 8.9 % (2.6-8.5); Neutrophils Absolute Auto 5.1 K/mm3 (1.3-6.7); Neutrophils Percent Auto 68.3 % (45.5-73.1); Platelet Count Result 272 k/mm3 (150-375); Red Blood Count 4.21 M/mm3 (4.2-5.4); Red Cell Distribution Width 13.4 % (11.5-14.5); White Blood Count 7.4 K/mm3 (4.5-10.0)
[2024-11-01 14:42] LABS: INR 1.1; Prothrombin Time 14.4 Seconds (11.1-14.7)
[2024-11-01 14:43] LABS: Partial Thromboplastin Time 29.4 Seconds (22.3-36.8)
[2024-11-01 14:49] LABS: Alanine Aminotransferase 30 U/L (6-35); Alkaline Phosphatase 102 U/L (38-126); Anion Gap 7 mmol/L (4-12); Aspartate Amino Transferase 53 U/L (14-36); Bilirubin,Total 0.8 mg/dL (0.2-1.3); Blood Urea Nitrogen 18 mg/dL (7-17); Calcium 8.7 mg/dL (8.4-10.2); Carbon Dioxide 26 mmol/L (22-30); Chloride 100 mmol/L (98-107); Estimated CRCL calculation 43 ml/min; Estimated Glomerular Filt Rate > 60; Glucose 98 mg/dL (65-110); Lipase 51 U/L (23-300); Potassium 4.1 mmol/L (3.4-5.0); Sodium 133 mmol/L (137-145)
[2024-11-01 15:01] LABS: Troponin I < 0.012 ng/mL (0.000-0.034)
[2024-11-01 15:22] VITALS: BP 134/79; PULSE 72; RESP 18; TEMP 36.2; O2SAT 100
[2024-11-01 17:08] VITALS: BP 130/75; PULSE 69; RESP 15; TEMP 36.7; O2SAT 100
== END 2024-11-01 17:15 | disposition home or self-care (01) ==
PROVIDERS: Physician Assistant; Emergency Provider Emergency Medicine; PCP Internal Medicine Rheumatology
DX: K31.89 Other diseases of stomach and duodenum (principal); K21.9 Gastro-esophageal reflux disease without esophagitis; G25.81 Restless legs syndrome; Z98.49 Cataract extraction status, unspecified eye; Z86.0100 Personal history of colon polyps, unspecified; Z90.49 Acquired absence of other specified parts of digestive tract; Z90.710 Acquired absence of both cervix and uterus; Z79.899 Other long term (current) drug therapy; R94.31 Abnormal electrocardiogram [ECG] [EKG]; R16.0 Hepatomegaly, not elsewhere classified
CPT/HCPCS: 36415; 71260; 74177; 80053; 83690; 84484; 85025; 85610; 85730; 93005; 99284; Q9967